=== PATIENT | male | born 1970 | race Caucasian/White ===

== ENCOUNTER 2016-09-30 12:50 | Emergency (ER) | payer SELFPAY ==
--- NOTE | ~2016-09-30 | CT4 ---
[facility] A Service of [facility] RADIOLOGY TEXT RESULTS PATIENT: ANSHUL DUFF LOCATION: [facility] : 68 UNIT #: [id number] AGE: [address]: Betzaida Cervantes MD SEX: M ORDER DR: [id number] [facility] [address] [place], [place] [address] [id number] E MR#: [id number] Acc #: [id number] NAME: ANSHUL DUFF : 1970 SEX: M STUDY DATE/TIME: 09/30/2016 13:16 UNIT: MELAN[facility] ROOM: STUDY DESCRIPTION: CT Abd and Pelv Wo Cont Attending Physician: Betzaida Cervantes M.D. Ordering Physician: Betzaida Cervantes M.D. Primary Care Physician: No Primary Care Physician MEDICAL IMAGING REPORT This report is preliminary unless electronic signature is present EXAM CT of the abdomen and pelvis without contrast media. HISTORY Left lower quadrant pain for 10 days. Seem at [facility] for same complaint 8 days ago. TECHNIQUE Transaxial imaging of the abdomen and pelvis was performed without contrast media. This CT exam was performed with one or more of the following radiation dose reduction techniques: automatic exposure control, adjustment of mA and/or kV according to patient size, and iterative reconstruction. FINDINGS Scans through the lung bases are unremarkable. Liver, gallbladder, spleen, adrenal glands, pancreas, and both kidneys have a normal appearance. No dilated or thickened loops of bowel are identified in the upper abdomen. No evidence of renal or obstructing ureteral calculi. Colon appears unremarkable. Bladder is normal. No pelvic masses or fluid collections are seen. Appendix is normal. CONCLUSION Normal CT of the abdomen and pelvis. Dictated by... Cecilio Enamorado M.D. THIS IS AN ELECTRONICALLY VERIFIED REPORT Cecilio Enamorado M.D. at 09/30/2016 5:04 PM [facility] A Service of [facility] RADIOLOGY TEXT RESULTS PATIENT: ANSHUL DUFF LOCATION: [facility] : 68 UNIT #: [id number] AGE: [address]: Betzaida Cervantes MD SEX: M ORDER DR: KYREE/carolynn TD: 09/30/2016 16:53 JOB #: [id number] MEDICAL IMAGING REPORT Page 1 of 1 COPY
[2016-09-30 12:11] LABS: URINE SOURCE CLEAN CATCH
[2016-09-30 12:20] LABS: BASOPHIL% 0.5 % (0-2.5); EOSINOPHIL# 0.2 X10e3 (0-0.7); EOSINOPHIL% 2.6 % (0.0-7.0); HEMOGLOBIN 15.7 gm/dL (13.0-16.0); LYMPHOCYTE# 1.4 X10e3 (1.0-3.5); LYMPHOCYTE% 23.8 % (17.0-45.0); MEAN CELL VOLUME 89.1 FL (83-96); MEAN CORPUSCULAR HEMOGLOBIN 30.3 PG (28-34); MEAN PLATELET VOLUME 8.9 FL (6.5-11.5); MONOCYTE# 0.3 X10e3 (0-1.0); MONOCYTE% 5.4 % (3.0-12.0); NEUTROPHIL# 4.1 X10e3 (1.5-7.1); NEUTROPHIL% 67.7 % (40-75); PLATELET COUNT 187 X10e3 (140-420); RED BLOOD COUNT 5.17 X10e (3.90-5.60); RED CELL DISTRIBUTION WIDTH 12.4 % (11.0-15.5); WHITE BLOOD COUNT 6.1 X10e3 (4.0-10.5)
[2016-09-30 12:22] LABS: DIFF IND NO
[2016-09-30 12:51] LABS: URINE APPEARANCE CLEAR; URINE BILIRUBIN NEG (NEG); URINE BLOOD NEG (NEG); URINE COLOR YELLOW; URINE GLUCOSE NORM (NORM); URINE KETONE NEG (NEG); URINE LEUKOCYTE ESTERASE NEG (NEG); URINE NITRATE NEG (NEG); URINE PROTEIN NEG (NEG); URINE UROBILINOGEN NORM (NORM)
[2016-09-30 12:56] LABS: CULTURE INDICATED? NO
[2016-09-30 12:57] LABS: ALBUMIN SERUM 4.7 g/dL (3.5-5.0); ALKALINE PHOSPHATASE 66 U/L (32-92); ALT (SGPT) 34 U/L (10-40); AST (SGOT) 21 U/L (10-42); BILIRUBIN, DIRECT <0.1 mg/dL (0.0-0.2); BILIRUBIN,INDIRECT 0.7 mg/dL (0.0-0.9); BILIRUBIN,TOTAL 0.8 mg/dL (0.2-2.0); BLOOD UREA NITROGEN 25 mg/dL (9-23); BUN/CREATININE RATIO 27.77; CALCIUM SERUM 9.6 mg/dL (8.4-10.2); CARBON DIOXIDE 29 mmol/L (22-31); CHLORIDE 101 mmol/L (100-111); CREATININE SERUM 0.9 mg/dL (0.6-1.4); GLOM FILT RATE Estimated 101.4 mL/min (>60); GLUCOSE FASTING 131 mg/dL (70-110); LIPASE 23 U/L (22-51); POTASSIUM 4.2 mmol/L (3.5-5.1); SODIUM 137 mmol/L (135-145)
== END 2016-09-30 15:35 | disposition home or self-care (01) ==
LOC: CED 12:50
PROVIDERS: Emergency Medicine
DX: R10.32 Left lower quadrant pain (principal)
CPT/HCPCS: 36415; 74176; 80048; 80076; 81003; 83690; 85025; 96372; 99284; J1885